=== PATIENT | female | born 1980 ===

== ENCOUNTER 2020-09-11 19:47 | Inpatient (IN) | payer SELFPAY ==
[~2020-09-11] VITALS: Ht 167.6 cm; Wt 58.5 kg
[2020-09-11 20:01] LABS: ARTERIAL BLD GAS O2 SATURATION 90.5 % (92-100); ARTERIAL BLD GAS TCO2 CT 27.3; ARTERIAL BLOOD GAS BASE EXCESS 0.6 (-2-2); ARTERIAL BLOOD GAS HCO3 25.9 meq/L (22-26); ARTERIAL BLOOD GAS PCO2 44.3 mmHg (35-45); ARTERIAL BLOOD GAS PO2 59.4 mmHg (80-100); ARTERIAL BLOOD GAS pH 7.39 (7.35-7.45)
[2020-09-11 20:26] LABS: BASO % 0.3 % (0.0-2.0); EOS % 0.2 % (0-4.0); GRAN # 9.5 (1.4-6.5); GRAN % 78.9 % (42.2-75.2); HEMOGLOBIN 10.7 g/dl (12.5-16.0); LYMPH # 1.3 (1.2-3.4); LYMPH % 10.5 % (20.0-51.0); MEAN CELL VOLUME 82 fl (80.0-100.0); MEAN CORPUSCULAR HEMOGLOBIN 26 pg (27.0-31.0); MEAN CORPUSCULAR HGB CONC 31 g/dl (33.0-37.0); MEAN PLATELET VOLUME 9.4 fl (7.4-10.4); MONO # 1.1 (0.1-0.6); MONO % 9.4 % (1.7-9.3); PLATELET COUNT 413 K/mm3 (130-400); RED BLOOD COUNT 4.18 M/mm3 (4.10-5.30); REDCELL DISTRIBUTION WIDTH-CV 16.1 % (11.5-14.5)
[2020-09-11 20:28] LABS: HEMATOCRIT 34.1 % (37.0-47.0)
[2020-09-11 20:42] LABS: ALANINE AMINOTRANSFERASE 10 U/L (4-34); ALBUMIN 3.9 gm/dL (3.5-5.0); ALKALINE PHOSPHATASE 79 U/L (50-136); ANION GAP 8 mmol/L (7-16); AST,SGOT 17 U/L (15-37); BILIRUBIN,TOTAL 0.5 mg/dL (0.0-1.0); BLOOD UREA NITROGEN 8 mg/dL (7-17); CALCIUM 9.3 mg/dL (8.4-10.2); CARBON DIOXIDE 29 mmol/L (22-30); CHLORIDE 101 mmol/L (98-107); CREATINE KINASE 26 U/L (30-135); CREATININE, serum 0.66 (0.52-1.25); GLUCOSE 105 mg/dL (74-106); MAGNESIUM 2.2 mg/dL (1.6-2.3); POTASSIUM 3.3 mmol/L (3.4-5.0); SODIUM 138 mmol/L (137-145); TOTAL PROTEIN 7.7 gm/dL (6.4-8.2)
[2020-09-11 20:48] LABS: ACETAMINOPHEN < 10 ug/mL (10-30); SALICYLATE < 1.0 mg/dL
[2020-09-11 21:22] LABS: MAGNESIUM 2.3 mg/dL (1.6-2.3)
[2020-09-11 22:05] LABS: COLLECTION METHOD CLEAN CATCH
[2020-09-11 22:18] LABS: MUCOUS Present /lpf; PH 5 (5-8); URINE APPEARANCE Clear; URINE BACTERIA None Seen /hpf; URINE BILIRUBIN Negative (NEGATIVE); URINE BLOOD Negative (NEGATIVE); URINE COLOR Yellow; URINE GLUCOSE Negative (NEGATIVE); URINE KETONE Trace (NEGATIVE); URINE LEUKOCYTE ESTERASE Negative (NEGATIVE); URINE NITRATE Negative (NEGATIVE); URINE PROTEIN(semi-quant) 1+ (NEGATIVE); URINE UROBILINOGEN Negative (NEGATIVE); URINE WBC None Seen /hpf
[2020-09-11 22:29] LABS: TRICYCLIC ANTIDEPRESS URINE NEGATIVE
[2020-09-12] VITALS (15 sets, daily range): BP systolic 95–143; BP diastolic 50–90; PULSE 66–102; TEMP 97.6–98.2
[2020-09-12 02:00] LABS: ALCOHOL(ethanol),MEDICAL < 10 mg/dL
--- NOTE | 2020-09-12 02:00 | NUR ---
Pt arrived to medical unit room 306 at 0100 from ED. Alert upon arrival, partially oriented. Oriented pt to room and completed admission assessments and med rec from small amount of information provided by patient. Pt drowsy and minimally responsive to questions. Unable to recall how she got here or what happened prior. Vitals stable at this time. Heart rate mildly elevated between 100-110 with regular rhythm. Lungs CTA. Suicide precautions initiated, sitter just outside door and video monitoring in place.
[2020-09-12 08:21] LABS: BASO % 0.4 % (0.0-2.0); EOS % 0.4 % (0-4.0); GRAN # 6.3 (1.4-6.5); GRAN % 75.2 % (42.2-75.2); LYMPH # 1.4 (1.2-3.4); LYMPH % 16.7 % (20.0-51.0); MEAN CELL VOLUME 81 fl (80.0-100.0); MEAN CORPUSCULAR HGB CONC 31 g/dl (33.0-37.0); MEAN PLATELET VOLUME 9.4 fl (7.4-10.4); MONO # 0.6 (0.1-0.6); MONO % 6.7 % (1.7-9.3); PLATELET COUNT 333 K/mm3 (130-400); RED BLOOD COUNT 3.45 M/mm3 (4.10-5.30); REDCELL DISTRIBUTION WIDTH-CV 16.4 % (11.5-14.5)
[2020-09-12 08:25] LABS: HEMOGLOBIN 8.6 g/dl (12.5-16.0); MEAN CORPUSCULAR HEMOGLOBIN 25 pg (27.0-31.0)
[2020-09-12 08:41] LABS: ALBUMIN 2.9 gm/dL (3.5-5.0); BILIRUBIN,TOTAL 0.5 mg/dL (0.0-1.0); CALCIUM 8.4 mg/dL (8.4-10.2); CREATININE, serum 0.64 (0.52-1.25); POTASSIUM 4.2 mmol/L (3.4-5.0)
--- NOTE | 2020-09-12 09:57 | NUR ---
Consult received CPS # [id number] SEE minor loretta notation.
--- NOTE | 2020-09-12 11:17 | NUR ---
0800: Report received from Nohemi, pt laying in bed sleeping, minimal response, on suicide precautions, 1:1 sitter, PUI droplet/contact precautions in place. Pt has RAC IV w/ IVF running w/o issue. Pt on room air, vitals monitoring in progress, VSS, on tele, no issues noted at this time. 1000: Pt seen and assessed by Dr. Wagoner. Pt awake, alert, partially oriented. Pt cooperative at the time. Pt asking about daughter, no information given. pt informed we would stop IVF, pt could have general diet. Pt stated she would take juice or water. 1025: This nurse called by CUE WORKER, who is in room, pt ripped out IV, threatening to leave, has become agitated, asking about daughter. Pt now uncooperative w/ cares, refusing to sit down, doesn't want to stay in hospital. pt removed gown and tele. Orders to DC tele, K+ replacement, and IVF placed per Dr. Wagoner. supervisor microbiology technologists informed. Pt wants to shower. Informed pt CUE WORKER would be in room w/ her, pt decided not to shower. Pt sat back down in bed, put gown back on. Pt informed that her daughter is safe. 1055: "family member" called, stated his name was Gaetano and her was the pts boyfriend, asked about the keys to the car. He was informed that we could not give out information at this time and could take down name and number. Pt father got on phone and was asking for the same information, he was also informed about not giving out information and could take down numbers, then hung up on this nurse. Pt also showered, CUE WORKER in room with patient during that time. 1100: "uncle" jennifer called back and gave number to be reached, stated that "gaetano" was pts daughters father. SW aware of situation and following. Will continue to monitor.
--- NOTE | 2020-09-12 12:00 | NUR ---
1155: Pt threatening to leave again, pt sitting in bed. Pt asking questions about daughter, states she "needs to go get her car and keys". Pt redirected multiple times, pt very unhappy about situation. Pt repeatedly told she cannot leave at this time and cannot go out to smoke. Pt asked who I was, told her I was her nurse and caring for her today, pt stated "No you're not, I don't need your help". Pt eventually calmed down. Pt now resting in bed, asleep.
--- NOTE | 2020-09-12 13:52 | NUR ---
SW made contact with patient about incident. Patient reports her Name as Nina Osuna 1980. Patient [place] [address] [facility] in [place], [address] [place] [address]. Patient reports that they do not reside in this area. Patient reports that she was on a family vacation from [facility] to [facility] to visit. Patient reports that she got lost on her way to her Gaetano Andrew . Patient reports that she has a mother Dee who is listed as NOK and her Mother in law Gissel Jenkins . Patient reports that they have been driving around for two weeks. Patient reports that she had her 6 year old daughter with her Norman Andrew 04/03/2014. Patient reports that her daughter was in the care with her when things got fuzzy. Patient reports that she told her DTR to put her seat belt on. SW prompted client about ingesting or taking any substances. Patient denies have every taking any substance other than her prescribed medications. Patient reports having a primary care in [facility] Dr. Waggoner and Dr. Yusra Arguello. Patient reports that she was just passing through to go back to [facility] when her phone went and she could not make any contact. Patient was given information to [facility]. CPS report created. Case being assigned to Karen High-GALA Made contact lens technician [facility].
--- NOTE | 2020-09-12 19:02 | NUR ---
1600: Pt requesting a nicotine patch. Phone order given by Dr. Wagoner. this nurse asked pt if she could place new IV because she had abx scheduled. Pt stated "No, I don't need antibiotics". Pt then told CROZE CUTTER HELPER that she did want "IV pain medications". 1800: Nicotine patch placed. This nurse notified JW Siddiqi about pt not wanting IV. Will try to convince pt to allow IV d/t possible PNA and needing abx. tylenol on board for pain, it will be the only pain medication allowed for pt. pt has been tolerating liquids and general diet fine. 1915: Pt became agitated, wanting to know why her clothes smelled like smoke. Pt story of incident continues to change, pt unsure of what happened fully. Report given to BELÉN Vila. Pt stable at this time, in room, sitter at door.
--- NOTE | 2020-09-12 20:00 | NUR ---
Assessment complete. Patient is currently sitting in bed and is pleasant. This RN dicussed starting an IV with patient and patient states she would be willing to try the IV even though she "hates needles". Patient has intermittent cough and is tolerating breathing on RA with no appearance of distress. Heart sounds are normal rate with irregular rhythm. A sitter is currently stationed outside the door and suicide precautions are in place. Will continue to monitor.
[2020-09-13] VITALS (15 sets, daily range): BP systolic 106–148; BP diastolic 54–93; PULSE 50–99; TEMP 97.2–98.4
--- NOTE | 2020-09-13 02:00 | NUR ---
Patient scoring 9 on CWA scale at this time. She is agitated, pacing around the room; HR is in the 90's. 2 mg Ativan administered per protocol. Will continue to monitor.
--- NOTE | 2020-09-13 05:53 | NUR ---
Patient currently sleeping in bed. She scored 7 on CWA scale at 0400 and 1 mg Ativan was administered. Sitter is still observing patient constantly from outside the door.
--- NOTE | 2020-09-13 08:26 | NUR ---
Pt assessment completed and charted, medications administered per dec. pt sitting in bed, getting ready to eat breakfast. Pt alert, oriented to self. Some confused coversation/paranoia, random conversation. Per nightshift pt allowed for new IV and was receiving abx and then decided she "was done w/ antibiotics", unhooked her self. Pt then showered at shift change and didn't allow sitter to wrap IV. IV was unsalvageable, removed on LFA. New 22g started to RFA, good blood return. Pt scoring 9 on detox scale. Pt cooperative w/ cares this morning. pt stated she wanted ultram, discussed that she could't receive narcotics, told her tylenol was available. pt didn't want tylenol. This nurse asked about pain, pt then stated she didn't have any pain. No further needs expressed.
--- NOTE | 2020-09-13 16:21 | NUR ---
Patient COVID test came back negative, we have moved her to room 313 out of the COVID unit, faxed patient info and requested screen from [facility], patient condition is improved , vital signs stable, CIWA scores are improving, 1;1 sitter continues for now
--- NOTE | 2020-09-13 18:41 | NUR ---
Patient had Zoom meeting with [facility] for pyscosocial evaluation, they recommended a voluntary admit to an inpatient psych facility/ patient agreed with this plan of care, screener also did inform us that if she was unwilling to go voluntarily that he would send assessment/recommend involuntary admittance, I have notified of plan of action, I also notified fabric coating supervisor, due to good behavior we are allowing patient to make some phone calls to family and or friends to updated on her status and plan of care
--- NOTE | 2020-09-13 19:30 | NUR ---
Report received, assumed care for shift stacker. Assessment complete. A&Ox3-agitated. Scoring 6 on ETOH screen-ativan given per dr order. Upset she cant have her percocet and tramadol. Did calm down knowing she would be receiving ativan/gabapentin. Right lung magaña noted to be hrdcap-keyyzefm-qxi productive. Sitter at bedside due to suicide precautions. Denies questions/concerns. Call light in reach. Will monitor.
--- NOTE | 2020-09-13 22:00 | NUR ---
Mother of patient called stating she had received several calls from her daughter and she is very paranoid and stating people are after her. Requesting information on this stay-none given as she did not have the pass code and patient stated at beginning of shift that she did not want any information released about her. Family understanding and states "I just want someone to know that she is paranoid and thinks someone is after her so they dont release her to soon."
--- NOTE | 2020-09-13 22:18 | NUR ---
Attempt made to administer medications due. Sleeping-hard to wake up-will answer but swats at staff stating "I fucking heard you." DId take medications after several attempts.
[2020-09-14] VITALS (44 sets, daily range): BP systolic 99–139; BP diastolic 62–93; PULSE 57–114; TEMP 98.1–98.5
--- NOTE | 2020-09-14 02:46 | NUR ---
Meño Mullins-called stating he reviewed patient information with provider on and they are declining admission/transfer.
--- NOTE | 2020-09-14 05:49 | NUR ---
Received call/fax from [employer] [facility] regarding consent to treat. Consent form placed on front of chart for when providers come on day shift.
--- NOTE | 2020-09-14 06:18 | NUR ---
Refusing lab draw at this time.
--- NOTE | 2020-09-14 06:33 | NUR ---
Up out of bed/room several times asking for a phone. Instructed she would have to wait until someone could bring her a phone that could make long distance calls. Did get phone privilege yesterday due to good behavior-this nurse received several calls last night from family members due to those phone calls stating she had called them c/o people being after her and wanting to leave. Instructed that phone priviledges would have to wait until after report when can be monitored. Irritated with this but calmed down enough to lay back down.
--- NOTE | 2020-09-14 07:00 | NUR ---
PT REPORT GIVEN FROM BELÉN VICTORIA. PT CARE WAS TAKEN OVER BY THIS RN SHORTLY AFTER THE BEGINNING OF THE SHIFT. THE PATIENT IS AGITATED, AND IN THE JIM WAY. SHE STATES THAT SHE IS NOT "CRAZY" AND THAT SHE DOES NOT NEED TO BE MONITORED. PT IS CURRENTLY ON Q15MIN CHECKS DUE TO SUICIDE ATTEMPT AND HOMOCIDE ATTEMPT ON HER DAUGHTER, SARTHAK. PT TOOK ORAL MEDICATIONS WITHOUT PROBLEM. WAS GIVEN SOME ATIVAN TO CALM HER DOWN WELL PRN SEROQUEL TO HELP WITH THE MENTAL INSTABILTY REGARDING CONSPIRACY.
--- NOTE | 2020-09-14 09:15 | NUR ---
The patient is medically stable and needs to be screened by [facility]. SW contacted and faxed the patient's records to [facility]. The mix mill tender reports that once they receive the patient's information, they will contact this SW back with the login and passcodes for a Zoom meeting to screen the patient.
--- NOTE | 2020-09-14 12:52 | NUR ---
Zita, at [facility], reports that they already screened the patient in the ED yesterday. She states that they were just waiting on medical clearance and the patient's COVID results. Zita reports that they will start sending her information out to inpatient psych units and will let us know when they find placement.
--- NOTE | 2020-09-14 14:15 | NUR ---
NATALIE received a phone call from Moon at [facility]. Moon reports that they need some updated vitals and nursing notes from what [facility] sent them. NATALIE faxed updates and nursing notes to Moon at [phone].
--- NOTE | 2020-09-14 15:37 | NUR ---
Zita, at [facility], reports that they have consent forms for the patient to sign for voluntary inpatient psych at [facility]. During this time, the patient became agitated and started wandering out of her room and asking to leave. Security was called. SW updated the patient and presented her with the consent forms for . The patient states that she only consented to stay here for a clense. She states that she is not signing any paperwork and that any psychiatric treatment would have to be determined or mandated at court. SW notified the hospitalist. The hospitalist has determined that the patient is involuntary and is not safe to be discharged. A psych consult was ordered and Dr. Hennessy was notified. [facility] was contacted and will screen the patient again. Ct, at [facility], contacted NATALIE with the Zoom ID and password. NATALIE connected to the Zoom meeting and provided the tablet to the patient to be re-screened. Dr. Hennessy has also arrived to the hospital to screen the patient. CPS worker, Tyrese, arrived to the hospital and also met with the patient.
--- NOTE | 2020-09-14 16:47 | NUR ---
Ct, at [facility], reports that after screening the patient again; she does not have enough to hold the patient as involuntary. She states that she has to screen the patient as what she presents now. Ct states that the patient is not a harm to herself or others. Ct reports that the patient's , Gaetano Andrew, is here in [place] now and staying at a hotel. The hotel's phone number is [phone]. Ct states that she has talked to Gaetano and that him and the patient will stay here until Monday for their court date. NATALIE updated our psychiatrist, Dr. Hennessy. NATALIE contacted and updated the hospitalist. Dr. Hennessy also followed up with Ct at [facility]. Dr. Hennessy reports that Ct confirmed everything with the and a safety plan was made. NATALIE updated the hospitalist. The patient is to discharge today, 09/14.
[2020-09-14] MEDS ORDERED: CLEOCIN HCL300 MG PO (17:33)
--- NOTE | 2020-09-15 14:09 | NUR ---
cinder worker contacted SABINE Tobin, and advised that patient was discharged from the hospital and that patient did not qualify for an involuntary psychiatric placement, and refused to go voluntary. Worker advised that patient was discharged.
== END 2020-09-14 18:15 | disposition home or self-care (01) | DRG 871 ==
LOC: COL.ER 19:47 → EDBD 19:49 → COL.ER 19:49 → MEDICAL 23:24
PROVIDERS: Internal Medicine; Nurse Practitioner Family; ADMIT Emergency Medicine
DX: A41.9 Sepsis, unspecified organism (principal); J96.01 Acute respiratory failure with hypoxia; J18.9 Pneumonia, unspecified organism; J69.0 Pneumonitis due to inhalation of food and vomit; F20.0 Paranoid schizophrenia; G93.49 Other encephalopathy; F19.10 Other psychoactive substance abuse, uncomplicated; E87.6 Hypokalemia; D64.9 Anemia, unspecified; D69.6 Thrombocytopenia, unspecified; F19.14 Other psychoactive substance abuse with psychoactive substance-induced mood disorder; Z20.828 Contact with and (suspected) exposure to other viral communicable diseases
CPT/HCPCS: 99223-AI; 99232-AI; 99239; J0456; J1630; J1650; J2060; J2185; J2310; J2543; J3480; J7030; J7050; Q9967